=== PATIENT | female | born 1970 | race Caucasian/White ===

== ENCOUNTER 2022-07-13 11:02 | Outpatient (CLI) | payer SELFPAY ==
[2022-07-13 17:30] LABS: Chloride* 108 mmol/L (96-114); Potassium* 4.7 mmol/L (3.6-5.1); Sodium* 138 mmol/L (135-149)
[2022-07-13 17:32] LABS: Cholesterol* 220 mg/dL (90-199)
[2022-07-13 17:33] LABS: Blood Urea Nitrogen* 13 mg/dL (7-30); Carbon Dioxide* 20 mmol/L (20-32); Creatinine* 0.7 mg/dL (0.5-1.5); Estimated Glomerular Filt Rate 105 ml/min; Glucose* 83 mg/dL (60-115); Triglycerides* 94 mg/dL (40-149)
[2022-07-13 17:34] LABS: Calcium* 9.4 mg/dL (8.4-10.6); HDL Cholesterol* 38 mg/dL (>=50); LDL Cholesterol Calculated 163 mg/dL (<100)
[2022-07-13 18:11] LABS: TSH With Reflex to FT4* 0.019 uIU/mL (0.270-4.200)
[2022-07-13 18:54] LABS: Free T4 Free Thyroxine* 1.33 ng/dL (0.70-1.85)
== END 2022-07-13 11:03 | disposition home or self-care (01) ==
PROVIDERS: PCP Nurse Practitioner Family; Visit Provider Nurse Practitioner Family
DX: Z00.00 Encounter for general adult medical examination without abnormal findings (principal); E03.9 Hypothyroidism, unspecified; N80.9 Endometriosis, unspecified; Z13.6 Encounter for screening for cardiovascular disorders
CPT/HCPCS: 80048; 80061; 84439; 84443

== ENCOUNTER 2023-08-02 08:27 | Outpatient (CLI) | payer SELFPAY | END 2023-08-02 08:28 | disposition home or self-care (01) | PROVIDERS: PCP Nurse Practitioner Family; Visit Provider Nurse Practitioner Family | DX: Z00.00 Encounter for general adult medical examination without abnormal findings (principal); E03.9 Hypothyroidism, unspecified; Z13.6 Encounter for screening for cardiovascular disorders | CPT/HCPCS: 80061; 84439; 84443 ==

== ENCOUNTER 2023-10-30 11:11 | Outpatient (CLI) | payer OTHER, SELFPAY ==
--- NOTE | 2023-10-30 11:30 | CRLHL7_ITS ---
For Patients: As a result of the Century Cures Act, medical imaging exams and procedure reports are released immediately into your electronic medical record. You may view this report before your referring provider. If you have questions, please contact your health care provider. BILATERAL SCREENING MAMMOGRAM WITH COMPUTER-AIDED DETECTION AND TOMOSYNTHESIS TECHNIQUE: CC and MLO views were obtained. These mammographic images have been obtained using full-field digital technique. These mammographic images were interpreted with the benefit of computer-aided detection. Breast tomosynthesis was used in this interpretation. COMPARISON FILM: 10/25/20, 04/24/18, . FINDINGS: There are scattered areas of fibroglandular density. IMPRESSION: There is no radiographic evidence for malignancy. ASSESSMENT: BI-RADS Category 1: Negative RECOMMENDATION: Routine screening mammogram in 1 year. A lay language report of this examination will be provided to the patient. RONALD ARENAS M.D. Diagnostic Radiologist [email or web address] [email or web address] Transcribed: 10/30/2023, 2:[address]/Dictated by: Ronald Arenas MD @ 10/30/2023 12:27:00 PM (Electronically Signed)
== END 2023-10-30 11:12 | disposition home or self-care (01) ==
LOC: MAMMO 11:12
PROVIDERS: PCP Nurse Practitioner Family; Visit Provider Nurse Practitioner Family
DX: Z12.31 Encounter for screening mammogram for malignant neoplasm of breast (principal)
CPT/HCPCS: 77063; 77067

== ENCOUNTER 2023-12-04 06:37 | Outpatient (CLI) | payer OTHER, SELFPAY ==
--- OUTSIDE RECORDS SUMMARY | 2023-12-04 06:41 | XMS_ITS | Clinical Summary ---
Author Name Unknown Organization License [facility] Address [place], [place] [address] Care Team Providers Care Layout Operator Name Role Phone Merlin Pearson MD Primary Care Provider Allergies No known active allergies Medications Medication Sig Dispensed Refills Start Date End Date Status IBUPROFEN 200 MG TAB take 4 tablet (800 mg) by oral route every 6 hours as needed with food 0 Active LEVOTHYROXINE 150 MCG TAB take 1 tablet (150 mcg) by oral route once daily 90 0 09/13/2009 Active Active Problems Problem Noted Date Diagnosed Date Endometriosis, severe 03/18/2009 Resolved Problems Problem Noted Date Diagnosed Date Resolved Date Pelvic mass 03/18/2009 03/25/2009 Adnexal mass 02/22/2009 03/18/2009 Family History Medical History Relation Name Comments Diabetes Paternal Grandfather Diabetes Paternal Grandmother Diabetes Sister type 1 Relation Name Status Comments Paternal Grandfather Paternal Grandmother Sister Social History Tobacco Use Types Packs/Day Years Used Date Smoking Tobacco: Never Alcohol Use Standard Drinks/Week Comments Yes 1.7 (1 standard drink = 0.6 oz p ure alcohol) occas Sex and Gender Information Value Date Recorded Sex Assigned at Not on file Gender Identity Not on file Sexual Orientation Not on file Obstetrics History Para Term AB IAB SAB Ectopic Multiple Livin g Live Births 2 2 2 0 0 0 0 0 0 2 Date Outcome GA Total Labor Labor/2nd/3rd Weight Sex Delivery Anes PTL Lisbet A1 A5 Name Cl in 04/04 Term 40w 0d M Vag Delivery Location:[facility] 05/31 Term 40w 0d M Vag Delivery Location:[facility] Last Filed Vital Signs Vital Sign Reading Time Taken Comments Blood Pressure 122/62 02/28/2010 1:19 PM CDT Pulse 73 03/18/2009 5:05 PM CDT Temperature 36.8 ??C (98.2 ??F) 02/28/2010 1:19 PM CD T Respiratory Rate 16 03/18/2009 5:05 PM CDT Oxygen Saturation 98% 03/18/2009 5:05 PM CDT Inhaled Oxygen Concentration - - Weight 67.6 kg (149 lb) 02/28/2010 1:19 PM CDT Height 169.5 cm (5' 6.75) 01/07/2009 10:[address] Body Mass Index 23.51 01/07/2009 10:34 AM JUDICIAL REPORTER Plan of Treatment Health Maintenance Due Date Last Done Comments COVID-19 vaccine series (#1) 1971 Tdap 1982 Depression screening for age 12+ 1983 HIV for age 15-65 1986 BMI (ht and wt on same day) for age 18+ 1989 Hepatitis C screening for age 18-79 1989 Tetanus booster 1991 Colonoscopy through age 75 2016 Lipids for age 45-75 2016 Mammogram for age 45-75 2016 Zoster (shingles) series for age 50+ (1 of 2) 2021 Influenza for age 50-64 07/27/2023 Pap test for age 21-65 08/02/2026 3, 08/02/2023, 12/25/2016, Additional history exists Pneumococcal series for age 6-64 Aged Out No longer eligible based on patient's age to complete this topic Advance Directives Latest Code Status on File Code Status Date Activated Date Inactivated Comments Full Code 03/18/2009 11:23 AM 03/18/2009 7:38 PM Care Teams Layout Operator Relationship Specialty Start Date End Date Merlin Pearson MD PCP - General 02/28/10
--- NOTE | 2023-12-04 07:44 | W.ANESCHARGE ---
Anesthesia Charges Start Date/Time Anesthesia Start Date: 12/04/23 Anesthesia Start Time: 07:15 Stop Date/Time Anesthesia Stop Date: 12/04/23 Anesthesia Stop Time: 07:38
--- NOTE | 2023-12-04 08:26 | W.ANESCHARGE ---
Anesthesia Charges Start Date/Time Anesthesia Start Date: 12/04/23 Anesthesia Start Time: 07:15 Stop Date/Time Anesthesia Stop Date: 12/04/23 Anesthesia Stop Time: 07:38
== END 2023-12-04 06:38 | disposition home or self-care (01) ==
LOC: OP CLINIC 06:39
PROVIDERS: PCP Nurse Practitioner Family; Visit Provider Internal Medicine
DX: Z12.11 Encounter for screening for malignant neoplasm of colon (principal); K64.8 Other hemorrhoids
CPT/HCPCS: 00812; 45378; J2704

== ENCOUNTER 2024-10-02 10:46 | Outpatient (CLI) | payer OTHER, SELFPAY ==
--- OUTSIDE RECORDS SUMMARY | 2024-10-02 10:50 | XMS_ITS | Clinical Summary ---
Author Organization [employer] [facility] Address [place], [place] [address] Care Team Providers Care Sulfur Chloride Operator Name Role Phone Merlin Pearson MD Primary Care Provider [phone] Allergies No known active allergies Medications Medication Sig Dispensed Refills Start Date End Date Status IBUPROFEN 200 MG TAB take 4 tablet (800 mg) by oral route every 6 hours as needed with food Active LEVOTHYROXINE 150 MCG TAB take 1 [...] Outcome GA Total Labor Labor/2nd/3rd Weight Sex Type Anes PTL Lisbet A1 A5 Name Clin 2 Term 40w 0d M Vag Delivery Location:[facility] 4 Term 40w 0d M Vag Delivery Location:[facility] Last Filed Vital Signs Vital Sign Reading [...] Body Mass Index 23.51 01/07/2009 10:34 AM RN IV THERAPY Plan of Treatment Health Maintenance Due Date Last Done Comments Tdap 1982 Depression screening for age 12+ 1983 HIV for age 15-65 1986 BMI (ht and wt on same day) for age 18+ 1989 Hepatitis C screening for age 18-79 1989 Tetanus booster 1991 Colonoscopy through age 75 2016 Lipids for age 45-75 2016 Mammogram for age 45-75 2016 Zoster (shingles) series for age 50+ (1 of 2) 2021 COVID-19 vaccine series ( season) 2024 Influenza for age 50-64 07/27/2024 Pap test for age 21-65 08/02/2026 , 08/02/2023, 12/25/2016, Additional history exists Pneumococcal series for age 6-64 Aged Out No longer eligible based on patient's age to complete this topic Procedures Procedure Name Priority Date/Time Associated Diagnosis Comments HPV HIGH RISK Routine 08/02/2023 8:20 AM CDT from Last 3 Months or Most Recently Relevant to Health Maintenance Results * HPV HIGH RISK (08/02/2023 8:20 AM CDT) TYPE 16 Negative Negative 08/07/2023 12:21 PM CDT [facility] TYPE 18 Negative Negative 08/07/2023 12:21 PM CDT [facility] OTHER HIGH RISK TYPES Negative Negative 08/07/2023 12:21 PM CDT [facility] Other (Cervical) 08/02/2023 8:20 AM CDT 08/03/2023 12:00 PM CDT Narrative [facility] - 08/07/2023 12:21 PM CDT HPV types 16, 18, 31, 33, 35, 39, 45, 51, 52, 56, 58, 59, 66 and 68 DNA were undetectable or below the pre-set threshold. Methodology: Sergio Nupur 4800 HPV Test Merlin Pearson MD MICROBIOLOGY [facility] [address] [place] [address], from Last 3 Months or Most Recently Relevant to Health Maintenance Advance Directives * Full Code (Latest Code Status on File) Date Activated Date Inactivated Comments 03/18/2009 11:23 AM 03/18/2009 7:38 PM Care Teams Sulfur Chloride Operator Relationship Specialty Start Date End Date Merlin Pearson MD PCP - General 02/28/10
== END 2024-10-02 10:47 | disposition home or self-care (01) ==
LOC: LKVREF 10:48
PROVIDERS: PCP Nurse Practitioner Family; Visit Provider Nurse Practitioner Family
DX: E03.9 Hypothyroidism, unspecified (principal); Z13.220 Encounter for screening for lipoid disorders
CPT/HCPCS: 80061; 84443

== ENCOUNTER 2025-10-15 08:05 | Outpatient (CLI) | payer OTHER, SELFPAY | END 2025-10-15 08:06 | disposition home or self-care (01) | PROVIDERS: PCP Nurse Practitioner Family; Visit Provider Nurse Practitioner Family | DX: I10 Essential (primary) hypertension (principal); E03.9 Hypothyroidism, unspecified; Z13.6 Encounter for screening for cardiovascular disorders | CPT/HCPCS: 80053; 80061; 84439; 84443 ==